=== PATIENT | female | born 1985 | race Hispanic/Latino ===

== ENCOUNTER 2021-06-21 00:03 | Emergency (ER) | payer OTHER ==
[~2021-06-21] VITALS: Ht 154.9 cm; Wt 70.8 kg
[2021-06-21] MEDS ORDERED: IBUPROFEN 600 MG TABLET PO ONE (01:00)
[2021-06-21] MEDS ORDERED: DOXYCYCLINE HYCLATE 100 MG TABLET PO SCH (02:00)
[2021-06-21] MEDS ORDERED: DICL50TA9 PO (02:05)
[2021-06-21] MEDS ORDERED: DOXY-336 PO (02:05)
[2021-06-21] MEDS ORDERED: DOXYCYCLINE HYCLATE 100 MG TABLET PO ONE (02:11)
[2021-06-21 02:15] VITALS: BP 109/52
== END 2021-06-21 02:24 | disposition home or self-care (01) ==
LOC: EDH 00:03
DX: J20.8 Acute bronchitis due to other specified organisms (principal); B96.89 Other specified bacterial agents as the cause of diseases classified elsewhere; I95.9 Hypotension, unspecified; E78.00 Pure hypercholesterolemia, unspecified; Z98.890 Other specified postprocedural states; Z20.822 Contact with and (suspected) exposure to COVID-19
CPT/HCPCS: 71045; 87635; 87804 ×2; 93005; 99285; C9803

== ENCOUNTER 2023-06-05 08:09 | Emergency (ER) | payer OTHER ==
[~2023-06-05] VITALS: Ht 154.9 cm; Wt 82.6 kg
[~2023-06-05 08:09] MED LIST: DICL50TA9 PO; DOXY-469 PO
[2023-06-05] MEDS ORDERED: ASPIRIN 81MG CHEW TAB PO ONE (08:30)
[2023-06-05 08:47] LABS: BASOPHILS # (AUTO) 0.03 K/uL (0.00-0.20); BASOPHILS % (AUTO) 0.5 % (0.0-5.0); EOSINOPHILS % (AUTO) 1.8 % (0.0-8.0); HEMATOCRIT 41.2 % (36-48); IMMATURE GRANULOCYTE ABSOLUTE 0.02 K/uL (0-1); LYMPHOCYTES # (AUTO) 2.1 K/uL (1.0-4.8); LYMPHOCYTES % (AUTO) 37.5 % (21.0-51.0); MEAN CORPUSCULAR HEMOGLOBIN 29.2 pg (27.0-33.0); MEAN CORPUSCULAR VOLUME 88.4 fL (79-99); MONOCYTES # (AUTO) 0.5 K/uL (0.1-1.0); MONOCYTES % (AUTO) 8.1 % (3.0-13.0); NEUTROPHILS # (AUTO) 2.9 K/uL (1.8-7.7); NEUTROPHILS % (AUTO) 51.7 % (40.0-77.0); PLATELET COUNT (AUTO) 317 K/uL (130-400); RED BLOOD CELL COUNT(AUTO) 4.66 MIL/uL (4.00-5.50); RED CELL DISTRIBUTION WIDTH 12.6 % (11.0-15.5); WHITE BLOOD COUNT (AUTO) 5.6 K/uL (4.8-10.8)
[2023-06-05 09:11] LABS: INR <= 0.93 (0.85-1.15); PROTHROMBIN TIME 10.3 SEC (9.6-11.6)
[2023-06-05 09:17] LABS: ALBUMIN 3.8 g/dL (3.5-5.0); BILIRUBIN,TOTAL 0.6 mg/dL (0.2-1.0); CREATININE 0.7 mg/dL (0.5-1.5); TOTAL PROTEIN, SERUM 7.2 g/dL (6.0-8.3)
[2023-06-05 09:31] LABS: B-TYPE NATRIURETIC PEPTIDE < 5 pg/mL (0-100)
[2023-06-05] MEDS ORDERED: IBUP-2070 PO (10:39)
[2023-06-05] MEDS ORDERED: CLIN-116 PO (10:39)
[2023-06-05] MEDS ORDERED: KETOROLAC 15MG/ML VIAL (15MG/ML) IM ONE (11:00)
[2023-06-05 11:10] VITALS: BP 132/67; PULSE 78; RESP 18; O2SAT 98
== END 2023-06-05 11:20 | disposition home or self-care (01) ==
LOC: EDH 08:09
DX: R07.89 Other chest pain (principal); K02.9 Dental caries, unspecified; K04.7 Periapical abscess without sinus; I10 Essential (primary) hypertension; E78.00 Pure hypercholesterolemia, unspecified; Z79.899 Other long term (current) drug therapy; Z98.890 Other specified postprocedural states
CPT/HCPCS: 99285; 71045; 84484; 80053; 83880; 85025; 85378; 85610; 36415; 96372; 93005; J1885

== ENCOUNTER 2023-11-17 11:10 | Emergency (ER) | payer OTHER ==
[~2023-11-17] VITALS: Ht 152.4 cm; Wt 83.9 kg
[~2023-11-17 11:10] MED LIST changes: +CLIN-116 PO; -DOXY-469 PO; +DOXY100C61 PO; +IBUP-2070 PO
[2023-11-17] MEDS: CEFTRIAXONE 1G VIAL IM ONE (11:55)
[2023-11-17] MEDS: KETOROLAC 30MG VIAL (30MG/ML) IM ONE (11:56)
[2023-11-17] MEDS: MORPHINE 2 MG SYG IM ONE (11:56)
[2023-11-17] MEDS ORDERED: KETO10TA2 PO (11:59)
[2023-11-17 12:54] VITALS: BP 128/70; PULSE 72; RESP 16; O2SAT 99
== END 2023-11-17 12:57 | disposition home or self-care (01) ==
LOC: EDH 11:10
DX: K02.9 Dental caries, unspecified (principal); Z79.899 Other long term (current) drug therapy; Z98.890 Other specified postprocedural states
CPT/HCPCS: 99284; 96372 ×3; J2270; J0696; J1885

== ENCOUNTER 2024-03-25 10:54 | Emergency (ER) | payer SELFPAY ==
[~2024-03-25] VITALS: Ht 152.4 cm; Wt 85.3 kg
[~2024-03-25 10:54] MED LIST changes: +KETO10TA2 PO
--- NOTE | 2024-03-25 11:35 | EKG ---
[facility] Test Date: 2024-03-25 Test Time: 11:13:37 Pat Name: ALEJANDRO TORRES Department: ED Room: Gender: F Security Rep: [id number] : 1985 Requested By: NAN PEREIRA Order Number: [id number] Reading MD: Dorys Aviles Measurements Intervals [place] Rate: 75 P: 8 CO: 129 QRS: 37 QRSD: 75 T: -17 QT: 368 QTc: 410 Interpretive Statements Sinus rhythm Compared to ECG 06/05/2023 08:17:22 No significant changes Electronically Signed On 03-27-2024 17:34:13 DAIRY SPECIALIST by Dorys Aviles Please click the below link to view image of tracing.
[2024-03-25 11:37] LABS: BASOPHILS # (AUTO) 0.03 K/uL (0.00-0.20); BASOPHILS % (AUTO) 0.5 % (0.0-5.0); EOSINOPHILS % (AUTO) 1.6 % (0.0-8.0); HEMATOCRIT 40.7 % (36-48); IMMATURE GRANULOCYTE ABSOLUTE 0.02 K/uL (0-1); LYMPHOCYTES % (AUTO) 31.4 % (21.0-51.0); MEAN CORPUSCULAR HGB CONC 32.4 g/dL (32.0-36.0); MEAN CORPUSCULAR VOLUME 89.5 fL (79-99); MONOCYTES # (AUTO) 0.4 K/uL (0.1-1.0); MONOCYTES % (AUTO) 6.3 % (3.0-13.0); NEUTROPHILS # (AUTO) 3.8 K/uL (1.8-7.7); NEUTROPHILS % (AUTO) 59.9 % (40.0-77.0); PLATELET COUNT (AUTO) 310 K/uL (130-400); RED BLOOD CELL COUNT(AUTO) 4.55 MIL/uL (4.00-5.50); RED CELL DISTRIBUTION WIDTH 12.6 % (11.0-15.5); WHITE BLOOD COUNT (AUTO) 6.3 K/uL (4.8-10.8)
[2024-03-25 11:46] LABS: CREATININE 0.7 mg/dL (0.5-1.0); POTASSIUM 3.8 mmol/L (3.5-5.1)
[2024-03-25 11:48] LABS: INR 0.95 (0.85-1.15); PROTHROMBIN TIME 10.3 SEC (9.6-11.6)
[2024-03-25 11:50] LABS: PARTIAL THROMBOPLASTIN TIME 29.2 SEC (26.3-35.5)
[2024-03-25 14:11] LABS: APPEARANCE,URINE CLEAR (CLEAR); BILIRUBIN,URINE NEGATIVE (NEGATIVE); COLOR,URINE LIGHT-YELLOW (YELLOW); GLUCOSE, URINE (UA) NEGATIVE (NEGATIVE); KETONES,URINE NEGATIVE (NEGATIVE); LEUKOCYTE ESTERASE ,URINE 25 Leu/uL (NEGATIVE); NITRATE,URINE NEGATIVE (NEGATIVE); OCCULT BLOOD,URINE NEGATIVE (NEGATIVE); PROTEIN,URINE NEGATIVE (NEGATIVE); UROBILINOGEN,URINE 0.2 mg/dL (0.2-1.0)
[2024-03-25 14:18] LABS: AMPHET/METH SCREEN,URINE NEGATIVE (NEGATIVE); BARBITURATE SCREEN, URINE NEGATIVE (NEGATIVE); BENZODIAZEPINES SCREEN,URINE NEGATIVE (NEGATIVE); CANNABINOID SCREEN,URINE NEGATIVE (NEGATIVE); COCAINE SCREEN,URINE NEGATIVE (NEGATIVE); OPIATE SCREEN,URINE NEGATIVE (NEGATIVE); PHENCYCLIDINE SCREEN,URINE NEGATIVE (NEGATIVE)
[2024-03-25 14:19] LABS: HCG,QUALITATIVE URINE NEGATIVE (NEGATIVE)
[2024-03-25 14:20] LABS: BACTERIA,URINE RARE /HPF (None Seen); MUCUS,URINE RARE LPF (None Seen); SQUAMOUS EPITHELIAL CELL,UR RARE /HPF (0-2)
[2024-03-25] MEDS: ketOROlac 15MG/ML VIAL (15MG/ML) IM ONE (15:24)
[2024-03-25 15:27] VITALS: BP 124/77; PULSE 77; RESP 20; TEMP 98.7; O2SAT 98
--- NOTE | 2024-03-25 15:43 | HMCIMG ---
CHEST 1VW HISTORY: Chest pain COMPARISON: 06/05/2023 FINDINGS: A frontal projection of the chest was obtained. Prominent interstitial markings are seen with possible superimposed infiltrates. The heart is normal in size. Degenerative changes are seen. No evidence of aortic calcification is seen. IMPRESSION: 1. Prominent interstitial markings are seen with possible superimposed infiltrates.
--- NOTE | 2024-03-25 16:33 | ERN ---
General Chief Complaint: Chest Pain Stated Complaint: CHEST PAIN, HEADACHE Time Seen by MD: 10:55 Time Seen by Midlevel: 10:55 Source: patient History of Present Illness Initial Comments 39-year-old female who presents to the ED due to chest pain onset two days. Patient denies any palpitations, difficulty breathing, or further associated symptoms. Allergies: Coded Allergies: No Known Drug Allergies (Unverified Allergy, Unknown, 06/21/21) Home Meds Active Scripts Ketorolac Tromethamine (Ketorolac Tromethamine) 10 Mg Tablet, 10 MG PO BID for 5 Days, #10 TAB Prov:ROBBIE CHAMBERLAIN 11/17/23 Clindamycin HCl (Clindamycin HCl) 150 Mg Capsule, 450 MG PO TID for 7 Days, #63 CAP Prov:COY PERRY MD 06/05/23 Ibuprofen (Ibuprofen) 600 Mg Tablet, 600 MG PO Q6H PRN for PAIN, #20 TAB Prov:COY PERRY MD 06/05/23 Diclofenac Sodium (Diclofenac Sodium) 50 Mg Tablet.dr, 50 MG PO TIDP PRN for PAIN LEVEL 7 TO 10, #20 TAB 0 Refills Prov:CORA FRANK MD 06/21/21 Doxycycline Monohydrate (Doxycycline Monohydrate) 100 Mg Capsule, 1 CAP PO BID for 10 Days, #20 CAP 0 Refills Prov:CORA FRANK MD 06/21/21 Past Medical History Past Medical History: No Pertinent History Medical History Other: CERVICAL CA IN REMISSION Past Surgical History: None Social History Social History: Other Female( History) LMP: Feb 09, 2024 ROS Dictation Constitutional: Negative for fever,chills, and weight loss Eyes: Negative for injury, pain,redness, and discharge ENT: Negative for injury,pain or swelling Cardiovascular: Positive for chest pain Negative for palpitations, and edema Respiratory: Negative for shortness of breath, cough, and wheezing, Abdomen/GI: Negative for abdominal pain, nausea, vomiting, diarrhea, and constipation Back: Negative for injury and pain : Negative for painful urination, bleeding or discharge MS/Extremity: Negative for injury and deformity Skin: Negative for rash, and discoloration Neuro: Negative for headache, weakness, numbness, tingling, and seizure Psych: Negative for suicide ideation, homicidal ideation, and hallucinations Results Laboratory and Microbiology Lab and Micro Result Laboratory Tests Test 03/25/24 11:25 03/25/24 13:04 03/25/24 14:53 White Blood Count 6.3 K/uL (4.8-10.8) Red Blood Count 4.55 MIL/uL (4.00-5.50) Hemoglobin 13.2 g/dL (12.0-16.0) Hematocrit 40.7 % (36-48) Mean Corpuscular Volume 89.5 fL (79-99) Mean Corpuscular Hemoglobin 29.0 pg (27.0-33.0) Mean Corpuscular Hemoglobin Concent 32.4 g/dL (32.0-36.0) Red Cell Distribution Width 12.6 % (11.0-15.5) Platelet Count 310 K/uL (130-400) Mean Platelet Volume 9.5 fL (7.5-10.5) Immature Granulocyte % (Auto) 0.3 % (0-1) Neutrophils (%) (Auto) 59.9 % (40.0-77.0) Lymphocytes (%) (Auto) 31.4 % (21.0-51.0) Monocytes (%) (Auto) 6.3 % (3.0-13.0) Eosinophils (%) (Auto) 1.6 % (0.0-8.0) Basophils (%) (Auto) 0.5 % (0.0-5.0) Neutrophils # (Auto) 3.8 K/uL (1.8-7.7) Lymphocytes # (Auto) 2.0 K/uL (1.0-4.8) Monocytes # (Auto) 0.4 K/uL (0.1-1.0) Eosinophils # (Auto) 0.10 K/uL (0.00-0.70) Basophils # (Auto) 0.03 K/uL (0.00-0.20) Absolute Immature Granulocyte (auto 0.02 K/uL (0-1) Nucleated Red Blood Cells 0.0 % (0.0-0.19) Prothrombin Time 10.3 SEC (9.6-11.6) Prothromb Time International Ratio 0.95 (0.85-1.15) Activated Partial Thromboplast Time 29.2 SEC (26.3-35.5) Sodium Level 138 mmol/L (136-145) Potassium Level 3.8 mmol/L (3.5-5.1) Chloride Level 102 mmol/L (101-111) Carbon Dioxide Level 29 mmol/L (21-32) Blood Urea Nitrogen 14 mg/dL (7-18) Creatinine 0.7 mg/dL (0.5-1.0) Glomerular Filtration Rate Calc 113 mL/min (>90) Random Glucose 98 mg/dL (70-105) Total Calcium 9.3 mg/dL (8.5-10.1) Urine Color LIGHT-YELLOW (YELLOW) Urine Appearance CLEAR (CLEAR) Urine pH 5.0 (5.0-8.0) Urine Specific [place] 1.013 (1.001-1.031) Urine Protein NEGATIVE mg/dL (NEGATIVE) Urine Glucose (UA) NEGATIVE mg/dL (NEGATIVE) Urine Ketones NEGATIVE mg/dL (NEGATIVE) Urine Occult Blood NEGATIVE (NEGATIVE) Urine Nitrate NEGATIVE (NEGATIVE) Urine Bilirubin NEGATIVE mg/dL (NEGATIVE) Urine Urobilinogen 0.2 mg/dL (0.2-1.0) Urine Leukocyte Esterase 25 Lisa/uL (NEGATIVE) H Urine RBC 2-5 /HPF (0-1) H Urine WBC 2-5 /HPF (0-1) H Urine Squamous Epithelial Cells RARE /HPF (0-2) Urine Bacteria RARE /HPF (None Seen) Urine HCG, Qualitative NEGATIVE (NEGATIVE) Urine Opiates Screen NEGATIVE (NEGATIVE) Urine Barbiturates Screen NEGATIVE (NEGATIVE) Urine Phencyclidine Screen NEGATIVE (NEGATIVE) Urine Amphetamines Screen NEGATIVE (NEGATIVE) Urine Benzodiazepines Screen NEGATIVE (NEGATIVE) Urine Cocaine Screen NEGATIVE (NEGATIVE) Urine Marijuana (THC) Screen NEGATIVE (NEGATIVE) Troponin I High Sensitivity < 4 ng/L (4-50) L Labs Reviewed?: Yes EKG/XRAY/US/CT/MRI EKG Comment Date: 03/25/2024 Time: 11:13 Rate: 75 EKG interpretation: Sinus rhythm, no STEMI, normal EKG Reviewed by ED Attending MDM MDM: Differential diagnosis: Rationale: Tests considered and ordered secondary to shared decision making include: There are no social concerns with this patient. I independently interpreted the test that were performed, results were reviewed by me and considered findings on radiology if ordered. Medical management and examination interpretation discussions were had by me with other qualified healthcare professionals as indicated for the patient's care. ED Course Orders Procedure Category Date Status Time Cbc With Differential LAB 03/25/24 Complete 10:55 Basic Metabolic Panel LAB 03/25/24 Complete 10:55 Urinalysis LAB 03/25/24 Complete W/Microscopic 10:55 Drug Screen Urine LAB 03/25/24 Complete 10:55 Chest 1vw RAD 03/25/24 Resulted 10:55 12 Lead Ekg Tracing- EKG 03/25/24 Complete Technical 10:55 Pt And Ptt LAB 03/25/24 Complete 10:55 ,Urine Test LAB 03/25/24 Complete 10:55 Troponin I High LAB 03/25/24 Complete Sensitivity 14:21 Ketorolac PHA 03/25/24 Complete Tromethamine 15mg/Ml 15:30 Current Medications Medications (Trade) Dose Ordered Sig/Timo Route PRN Reason Start Time Stop Time Status Last Admin Dose Admin Ketorolac Tromethamine (toRADol) 15 mg ONCE ONCE IM 03/25/24 15:30 03/25/24 15:26 DC Vital Signs Date Time Temp Pulse Resp B/P (MAP) Pulse Ox O2 Delivery O2 Flow Rate FiO2 03/25/24 15:27 98.8 77 20 124/77 98 Room Air* 0 21 03/25/24 14:01 98.8 74 20 122/76 98 Room Air* 0 21 03/25/24 11:04 97.7 79 16 115/79 98 Room Air 0 DX & DISP Disposition: Discharge Departure Impression: Primary Impression: Chest pain Condition: Stable Additional Instructions: Discharge home. Rest. Follow up with primary care DrFranko in 24 hours. Return to the ER for any acute changes or worsening symptoms. If any medications were prescribed take as directed. Okay to continue home medications unless otherwise discussed during your visit in the emergency room today. Patient was also advised to follow-up with primary care physician in 1 to 2 days for continued monitoring. Referrals: SELF,REFERRAL (PCP) I participated in the following activities of this patient's care: For this patient encounter, I reviewed the PA or MELTER SUPERVISOR documentation, treatment plan, and medical decision making. I did not have [id number] time with this patient. I will sign as the reviewing DrFranko And agree with the treatment plan and disposition. NAN PEREIRA Mar 25, 2024 16:33
== END 2024-03-25 15:26 | disposition home or self-care (01) ==
LOC: EDH 10:54
DX: R07.89 Other chest pain (principal); Z85.41 Personal history of malignant neoplasm of cervix uteri; Z79.899 Other long term (current) drug therapy
CPT/HCPCS: 36415; 71045; 80048; 80305; 81001; 81025; 84484; 85025; 85610; 85730; 93005; 99285

== ENCOUNTER 2024-04-28 17:46 | Emergency (ER) | payer SELFPAY ==
[~2024-04-28] VITALS: Ht 152.4 cm; Wt 84.4 kg
[2024-04-28] MEDS ORDERED: CLIN-141 PO (17:55)
[2024-04-28] MEDS ORDERED: IBUP-2077 PO (17:55)
--- NOTE | 2024-04-28 17:56 | ERN ---
ED Note History of Present Illness Stated Complaint: RIGHT LOWER TOOTH ACHE Chief Complaint: Tooth Ache/Pain Time Seen by MD: 17:47 Dictation: PATIENT IS HERE WITH A TOOTHACHE AND MILD GINGIVAL SWELLING TO HER RIGHT LOWER MOLAR ONSET TWO DAYS AGO. SHE JUST HAD THE MOLAR BEHIND IT PULLED LAST WEEK AND HAS A AN APPOINTMENT ON SUNDAY TO PULL THE ONE IN FRONT OF IT. SHE GOES TO HER DENTIST AT [facility], WAS TOLD TO COME TO THE EMERGENCY ROOM TODAY IF SHE HAD ANY PAIN. Allergies: Coded Allergies: No Known Drug Allergies (Unverified Allergy, Unknown, 06/21/21) Home Meds Active Scripts Ketorolac Tromethamine (Ketorolac Tromethamine) 10 Mg Tablet, 10 MG PO BID for 5 Days, #10 TAB Prov:ROBBIE CHAMBERLAIN 11/17/23 Clindamycin HCl (Clindamycin HCl) 150 Mg Capsule, 450 MG PO TID for 7 Days, #63 CAP Prov:COY PERRY MD 06/05/23 Ibuprofen (Ibuprofen) 600 Mg Tablet, 600 MG PO Q6H PRN for PAIN, #20 TAB Prov:COY PERRY MD 06/05/23 Diclofenac Sodium (Diclofenac Sodium) 50 Mg Tablet.dr, 50 MG PO TIDP PRN for PAIN LEVEL 7 TO 10, #20 TAB 0 Refills Prov:CORA FRANK MD 06/21/21 Doxycycline Monohydrate (Doxycycline Monohydrate) 100 Mg Capsule, 1 CAP PO BID for 10 Days, #20 CAP 0 Refills Prov:CORA FRANK MD 06/21/21 Past Medical History Past Medical History: No Pertinent History Additional Past Medical Hx: CERVICAL CA IN REMISSION Surgical History: None PSYCH History: no pertinent psych hx Social History: Other History: Not Applicable : 5 Para: 5 RN Note Reviewed/Agreed w/PFSH: Yes Review of System Dictation CONSTITUTIONAL: NEGATIVE EXCEPT FOR HPI HEAD/FACE: NEGATIVE EXCEPT FOR HPI EENT: NEGATIVE EXCEPT FOR HPI DENTAL CARIES PAIN TO NUMBER 30 RESPIRATORY: NEGATIVE EXCEPT FOR HPI GASTROINTESTINAL/ABDOMINAL: NEGATIVE EXCEPT FOR HPI GENITOURINARY: NEGATIVE EXCEPT FOR HPI MUSCULOSKELETAL: NEGATIVE EXCEPT FOR HPI INTEGUMENTARY: NEGATIVE EXCEPT FOR HPI NEUROLOGICAL/PSYCH: NEGATIVE EXCEPT FOR HPI HEMATOLOGIC/LYMPHATIC: NEGATIVE EXCEPT FOR HPI ALL SYSTEMS NEGATIVE, EXCEPT NOTED ABOVE. 13 POINT REVIEW OF SYSTEMS ASSESSED AND ALL NEGATIVE EXCEPT FOR ABOVE. Initial Vital Sign VS Vital Signs Date Time Temp Pulse Resp B/P (MAP) Pulse Ox O2 Delivery O2 Flow Rate FiO2 04/28/24 17:47 98.4 80 20 133/89 Room Air 0 Physical Exam Dictation VITAL SIGNS REVIEWED GENERAL APPEARANCE: ALERT, ORIENTED X 3, MILD ACUTE DISTRESS, WELL DEVELOPED, NOURISHED. HEAD AND FACE: NON-TRAUMATIC. EYES: PERRL, PINK CONJUNCTIVAS, EYELID NO TRAUMA, ANTERIOR CHAMBER WITH ARCUS SENILIS. EARS: PINNAS INTACT AND NO SIGNS OF TRAUMA OR ERYTHEMA EAR CANALS CLEAR AND NO DISCHARGE TM NO ERYTHEMA NOSE: NO DISCHARGE, NO BLEEDING. OROPHARYNX: MOUTH NORMAL, TONGUE PINK, DENTAL DECAY WITH GINGIVAL SWELLING TO TOOTH NUMBER 30. PHARYNX CLEAR,NO ERYTHEMA, TONSILS NO EXUDATES, NO ABSCESSES NOTED, MUCOUS MEMBRANE MOIST NECK: SUPPLE, NON-TENDER, NO THYROMEGALY, NO MASSES, NO JVD, NO BRUITS BREAST:DEFERRED CHEST:NO TENDERNESS, NO CREPITUS, NO PARADOXICAL MOVEMENT, NO RETRACTIONS LUNGS:CLEAR, WELL-VENTILATED, SYMMETRIC, NO RALES, NO WHEEZING, NO RHONCHI, NO STRIDOR, GOOD BREATH SOUNDS BILATERALLY HEART: REGULAR RATE, REGULAR RHYTHM, NO MURMUR, NO GALLOPS VASCULAR: NO PERIPHERAL EDEMA, ABDOMEN: SOFT, POSITIVE BOWEL SOUNDS, NONDISTENDED, NO GUARDING, NONTENDER, NO REBOUND, NO MASSES NO HEPATOMEGALY, NO SPLENOMEGALY, NO IZAGUIRRE'S SIGN, NO HERNIAS. RECTAL: DEFERRED GENITAL: DEFERRED NEUROLOGICAL: NORMAL SPEECH, MOTOR FUNCTION INTACT, SENSORY FUNCTION INTACT MUSCULOSKELETAL: NECK NONTENDER, FULL RANGE OF MOTION, BACK NONTENDER, FULL RANGE OF MOTION, EXTREMITIES: NONTENDER, FULL RANGE OF MOTION SKIN: COLOR PINK, DRY, NO TURGOR, NO RASH, NO LACERATIONS, NO ABRASIONS, NO CONTUSIONS. LYMPHATIC: DEFERRED Results (Laboratory/Radiology) Labs Reviewed?: Yes ED Course ED Course Vital Signs Date Time Temp Pulse Resp B/P (MAP) Pulse Ox O2 Delivery O2 Flow Rate FiO2 04/28/24 17:47 98.4 80 20 133/89 Room Air 0 1750 NO LABS OR IMAGING INDICATED. WE WILL TREAT PATIENT EMPIRICALLY FOR DENTALGIA AND DENTAL DECAY WITH TORADOL PATIENT WILL BE SENT HOME WITH CLINDAMYCIN AND IBUPROFEN TO SEE HER DENTIST AT [facility] Medical Decision Making MDM MEDICAL DECISION-MAKING BASED ON EMPIRIC TREATMENT FOR DENTAL CARIES AND DENTALGIA. PATIENT GIVEN TORADOL IN THE EMERGENCY ROOM DISCHARGED HOME WITH CLINDAMYCIN AND IBUPROFEN AND TOLD TO SEE HER DENTIST AT [facility] Disposition: Discharge Departure Impression: Primary Impression: Dental caries Additional Impression: Dentalgia Condition: Stable Scripts Ibuprofen (Ibuprofen 800 mg Tab) 800 Mg Tab 800 MG PO Q8H PRN for fever or pain, #30 TAB 0 Refills Prov: RACQUEL SIMENTAL NP 04/28/24 Clindamycin HCl (Clindamycin HCl) 300 Mg Capsule 1 CAP PO QID for 10 Days, #40 CAP 0 Refills TAKE TWO CAPSULES FOR THE 1ST DOSE, THEN TAKE ONE CAPSULE EVERY 6 HOURS DIRECTED UNTIL GONE. Prov: RACQUEL SIMENTAL NP 04/28/24 Additional Instructions: FOLLOW-UP WITH PRIMARY CARE PROVIDER IN 1 TO 2 DAYS. TAKE MEDICATIONS DIRECTED HERE IN THE EMERGENCY ROOM. OKAY TO CONTINUE HOME MEDICATIONS UNLESS OTHERWISE DISCUSSED DURING YOUR VISIT IN THE EMERGENCY ROOM TODAY. RETURN TO YOUR NEAREST EMERGENCY ROOM IF SYMPTOMS WORSEN OR IF THERE IS NO IMPROVEMENT. CALL 911 IF YOU NEED IMMEDIATE ASSISTANCE. TAKE TYLENOL OR MOTRIN [id number] NEEDED AND IF NO CONTRAINDICATIONS ARE PRESENT. INCREASE ORAL HYDRATION. A WOUND CULTURE OR URINE CULTURE WAS ORDERED HERE IN THE EMERGE [facility] ROOM DEPARTMENT PLEASE FOLLOW-UP WITH PRIMARY CARE PROVIDER AND ADVISE THEM TO GET REPEAT PORTS FROM OUR FACILITY. IF YOU HAD ANY VERONICA WRAP/SPLINTS THAT WERE APPLIED HERE, PLEASE DO NOT REMOVE THEM UNTIL YOU SEE YOUR PRIMARY CARE OR SPECIALTY. TAKE CLINDAMYCIN DIRECTED UNTIL GONE., SEE YOUR DENTIST AT [facility] SOON POSSIBLE FOR YOUR TOOTH Referrals: SELF,REFERRAL (PCP) Time of Disposition: 17:54 I have reviewed the case, and I agree with, Diagnosis and Plan RACQUEL SIMENTAL NP Apr 28, 2024 17:56
[2024-04-28 18:04] VITALS: BP 141/62; PULSE 88; RESP 20; TEMP 98.6; O2SAT 100
== END 2024-04-28 18:20 | disposition home or self-care (01) ==
LOC: EDH 17:46
DX: K02.9 Dental caries, unspecified (principal); Z85.41 Personal history of malignant neoplasm of cervix uteri
CPT/HCPCS: 99283